=== PATIENT | female | born 1935 | race African-American/Black ===

== ENCOUNTER → 2018-03-22 | Outpatient (CLI) | payer MEDICARE, BC ==
--- NOTE | 2018-03-22 11:45 | Diagnostic Imaging Report ---
EXAM: CT Chest WITHOUT contrast INDICATION: \[id number] \S\[id number] \S\CHEST PAIN COMPARISON: Chest CT dated 06/15/2016 TECHNIQUE: Chest was scanned utilizing a multidetector helical scanner from the lung apex through the level of the adrenal glands without administration of IV contrast. Absence of intravenous contrast decreases sensitivity for detection of lymphadenopathy and vascular pathology. Coronal and sagittal reformations were obtained. Routine protocol was performed. IV CONTRAST: None COMPLICATIONS: None RADIATION DOSE: Total DLP: 432.6 mGy*cm Estimated effective dose: (DLP x 0.014 x size factor) mSv CTDIvol has been reviewed. It is below the limits set by the Radiation Protocol Committee (RPC). FINDINGS: LINES/ TUBES: None. LUNGS AND AIRWAYS: 0.9x 0.9 cm right middle lobe nodule (series 3, image 50) previously measured 0.8 x 0.8 cm. Bibasilar subsegmental atelectasis. Airways are normal. PLEURA: The pleural spaces are clear. HEART AND MEDIASTINUM: The thyroid gland is normal. No mediastinal, hilar or axillary lymphadenopathy. The heart is borderline in size. There is no pericardial effusion. Moderate atherosclerotic ossification of coronary arteries. UPPER ABDOMEN: Unremarkable. Cholecystectomy. BONES: Unremarkable. Degenerative changes of thoracic spine. SOFT TISSUES: Unremarkable. IMPRESSION: No acute thoracic abnormality. 0.9 cm right middle lobe lung nodule measured 0.[address] dated 06/15/2016. Recommend attention on follow-up examination. PET/CT may or may not be helpful, considering some lung malignancies are not FDG avid. Signed by: Dr. Maurice Mahoney MD on 03/22/2018 11:41 AM
== END ==
LOC: CT 10:08
PROVIDERS: ATTEND Internal Medicine
DX: R07.9 Chest pain, unspecified (principal)
CPT/HCPCS: 71250

== ENCOUNTER → 2018-09-20 | Outpatient (CLI) | payer MEDICARE, BC ==
--- NOTE | 2018-09-20 15:55 | Diagnostic Imaging Report ---
CT CHEST WITHOUT CONTRAST HISTORY: SOLITARY PULMONARY NODULE COMPARISON: CTs of the chest March 22, 2018 and June 15, 2016 TECHNIQUE: CT scan of the chest WITHOUT intravenous contrast, using standard protocol. The chest was scanned utilizing a multidetector helical scanner from the apex to the level of the adrenal glands. Coronal and sagittal reformats are provided. IV CONTRAST: None, which limits evaluation of the vascular structures, mediastinum and soft tissues. RADIATION DOSE: Total DLP: 227.04 mGy*cm Dose modulation, iterative reconstruction, and/or weight based adjustment of the mA/kV was utilized to reduce the radiation dose to as low as reasonably achievable. COMPLICATIONS: None FINDINGS: Lines/tubes: None. Lungs and Airways: Low lung volumes result in bibasilar vascular crowding, accentuation of the pulmonary interstitial markings, central pulmonary vasculature, and the cardiac silhouette. Allowing for these limitations, the findings are as follows: The central right middle lobe pulmonary nodule measures 8 mm in diameter, in retrospect this is not significantly change from the comparisons. Pleura: No effusion or pneumothorax. Heart and mediastinum: The thyroid gland is normal. The heart and pericardium are within normal limits. Abdomen: Limited nonenhanced views of the upper abdomen. Metallic clips in the right upper quadrant of the abdomen are compatible with prior cholecystectomy. Lymph nodes: No pathologically enlarged lymph node identified. Vessels: Scattered atherosclerotic vascular calcifications, including the coronary arteries. Bones: Multilevel mild to moderate degenerative changes of the thoracic spine with accentuation of the thoracic kyphosis. Soft tissues: Otherwise, unremarkable. IMPRESSION: 1. The 8 mm indeterminate right middle lobe pulmonary nodule appears stable since March 2018 when allowing for subtle volume averaging and interobserver variance on the most recent comparison. Given the 2 1/2 years of stability, this is compatible with a benign nodule. 2. Coronary atherosclerosis. Signed by: Dr. Obed Adrian D.O., M.M.M. on 09/20/2018 3:51 PM
== END ==
LOC: CT 12:21
PROVIDERS: ATTEND Internal Medicine
DX: R91.1 Solitary pulmonary nodule (principal)
CPT/HCPCS: 71250

== ENCOUNTER → 2019-02-23 | Outpatient (CLI) | payer MEDICARE, BC ==
--- NOTE | 2019-02-26 08:25 | Diagnostic Imaging Report ---
#[id number] - USBRECOMLT ULTRASOUND OF THE LEFT BREAST : 02/23/2019 Comparison is made to exam dated: 08/15/2012 mammogram - [facility]. Color flow and real-time ultrasound were performed on the entire left breast with scanning in all four quadrants, retroareolar region and the left axilla. -There is no cystic or solid mass identified. IMPRESSION: NEGATIVE There is no sonographic evidence of malignancy. A 1 year screening mammogram is recommended. Liban Combs Jr., D.O. cw/:02/23/2019 16:36:25 Mail Distributor: KARINA FISH RDMS, [facility] letter sent: Normal Exam Ultrasound BI-RADS: 1 Negative
== END ==
LOC: US 14:42
PROVIDERS: ATTEND Internal Medicine
DX: N64.4 Mastodynia (principal)